=== PATIENT | male | born 1990 | race Caucasian/White ===

== ENCOUNTER 2022-04-06 14:15 | Emergency (ER) | payer BC, OTHER ==
[2022-04-06] MEDS ORDERED: TETANUS & DIPHTHERIA TOX,ADULT 0.5 ML VIAL ONE (14:28)
[2022-04-06] MEDS ORDERED: ONDANSETRON 4 MG/2 ML VIAL ONE (14:28)
[2022-04-06] MEDS ORDERED: HYDROMORPHONE HCL 0.5 MG/0.5 ML INJ ONE ×2 (14:29→15:31)
[2022-04-06] MEDS ORDERED: NA CHLORIDE 0.9% 1,000 ML ONE (14:29)
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
[2022-04-06 14:44] LABS: Absolute Lymphocytes (CBC) 4.6 K/uL (0.7-4.9); Hematocrit 46.1 % (39.6-49.0); Lymphocytes % 38.3 % (15.3-44.8); MCV 90.5 fL (80-100); MPV 9.8 fL (7.6-11.3); RBC Red Blood Cell Count 5.09 M/uL (4.33-5.43)
[2022-04-06] MEDS ORDERED: SILVER SULFADIAZINE 1% 25 GM TOP ONE (14:56)
[2022-04-06] MEDS ORDERED: Ringers Lactate 1,000 ML IV ONE (14:56)
[2022-04-06] MEDS ORDERED: HYDROMORPHONE HCL 1 MG/ML INJ ONE (14:58)
[2022-04-06 15:00] LABS: Albumin 4.8 g/dL (3.4-5.0); Bilirubin Total 0.5 mg/dL (0.2-1.0); Potassium 3.1 mmol/L (3.5-5.1); Protein, Total 8.7 g/dL (6.4-8.2)
[2022-04-06 16:48] VITALS: TEMP 98; O2SAT 100
[2022-04-06 16:51] VITALS: BP 149/88
== END 2022-04-06 16:29 ==
LOC: ER 14:15
DX: T20.20XA Burn of second degree of head, face, and neck, unspecified site, initial encounter (principal); T22.212A Burn of second degree of left forearm, initial encounter; T21.22XA Burn of second degree of abdominal wall, initial encounter; T31.0 Burns involving less than 10% of body surface; Z23 Encounter for immunization
CPT/HCPCS: 96361; 85025; 36415; 82550; 80053; 90471; 90714; 96375; 96374; 99285; J1170 ×3; J7120; J7030; J2405